=== PATIENT | female | born 1965 | race Caucasian/White ===

== ENCOUNTER → 2021-06-22 11:08 | Outpatient (CLI) | payer OTHER, SELFPAY ==
--- NOTE | ~2021-06-22 | XR_ITS ---
EXAMINATION: XR hip RT min 2V DATE: 06/22/2021 11:56 INDICATION: Right hip pain. TECHNIQUE: 2 views of right hip were obtained. COMPARISON: None. FINDINGS: Bone alignment is normal. No fracture. There is mild right hip osteoarthritis. IMPRESSION: 1. Mild right hip osteoarthritis. Reviewed, dictated and finalized at location A.
--- NOTE | ~2021-06-22 | XR_ITS ---
EXAMINATION: XR lumbar spine min 4V DATE: 06/22/2021 11:56 INDICATION: Right back pain TECHNIQUE: Anteroposterior, lateral, and bilateral oblique views of the lumbar spine, and cone-down l ateral view of the lumbosacral junction were obtained. COMPARISON: None. FINDINGS: There are 4 mm of retrolisthesis of L5 on S1. The vertebral body heights are normal. There is moderate loss of intervertebral disc space height at L4-5. Mild loss of intervertebral disc space height is seen at L1-2 and L5-S1. There is no fracture. Small degenerative osteophytes project from t he anterior endplates of multiple vertebral bodies. Moderate facet osteoarthritis is noted in the low er lumbar spine. IMPRESSION: 1. Moderate lower lumbar spondylosis. Reviewed, dictated and finalized at location B.
--- NOTE | ~2021-06-22 | XR_ITS ---
EXAMINATION: XR shoulder RT min 2V INDICATION: Right shoulder pain TECHNIQUE: Four views of the right shoulder are submitted. COMPARISON: None FINDINGS: Normal alignment. No fracture. There is mild glenohumeral and acromioclavicular joint osteo arthritis. Soft tissues are unremarkable. IMPRESSION: 1. No acute osseous abnormality. Reviewed, dictated and finalized at location B.
== END ==
PROVIDERS: PCP Family Medicine
DX: M16.11 Unilateral primary osteoarthritis, right hip (principal); M47.816 Spondylosis without myelopathy or radiculopathy, lumbar region; M25.511 Pain in right shoulder
CPT/HCPCS: 72110; 73030; 73502